=== PATIENT | female | born 1945 | race Caucasian/White ===

== ENCOUNTER → 2017-02-15 | Outpatient (CLI) | payer MEDICARE, MEDICAID ==
[~2017-02-15] MED LIST: HYDR-3927 PO; OMEP20CA10 PO
== END | disposition home or self-care (01) ==
LOC: MRI 10:09
PROVIDERS: ATTEND Neurological Surgery
DX: M48.02 Spinal stenosis, cervical region (principal)
CPT/HCPCS: 72141

== ENCOUNTER → 2017-04-12 | Outpatient (CLI) | payer MEDICARE, MEDICAID | END | disposition home or self-care (01) | LOC: MRI 11:41 | PROVIDERS: ATTEND Neurological Surgery | DX: M47.816 Spondylosis without myelopathy or radiculopathy, lumbar region (principal); M47.817 Spondylosis without myelopathy or radiculopathy, lumbosacral region; M12.88 Other specific arthropathies, not elsewhere classified, other specified site | CPT/HCPCS: 72148 ==

== ENCOUNTER → 2018-01-17 | Outpatient (CLI) | payer MEDICARE, MEDICAID | END | disposition home or self-care (01) | LOC: MRI 11:49 | PROVIDERS: ATTEND Neurological Surgery | DX: M51.36 Other intervertebral disc degeneration, lumbar region (principal); M43.16 Spondylolisthesis, lumbar region; M67.28 Synovial hypertrophy, not elsewhere classified, other site; M48.061 Spinal stenosis, lumbar region without neurogenic claudication; M12.88 Other specific arthropathies, not elsewhere classified, other specified site; M51.26 Other intervertebral disc displacement, lumbar region | CPT/HCPCS: 72148 ==

== ENCOUNTER → 2018-09-14 | Day surgery (SDC) | payer MEDICARE, MEDICAID ==
[~2018-09-14] MED LIST changes: +LIDOCAINE HCL 1% 20ML VIAL (Pyxis) INJ ONE; -OMEP20CA10 PO; +SODIUM BICARBONATE 4% (2.4MEQ) 5ML VIAL IV ONE
== END | disposition home or self-care (01) ==
LOC: RAD 10:16
PROVIDERS: ATTEND Internal Medicine
DX: E04.9 Nontoxic goiter, unspecified (principal); M17.0 Bilateral primary osteoarthritis of knee; E66.9 Obesity, unspecified; I10 Essential (primary) hypertension; M16.12 Unilateral primary osteoarthritis, left hip; K21.9 Gastro-esophageal reflux disease without esophagitis; E03.9 Hypothyroidism, unspecified; Z96.652 Presence of left artificial knee joint; Z79.899 Other long term (current) drug therapy; Z98.890 Other specified postprocedural states; Z90.710 Acquired absence of both cervix and uterus; Z68.26 Body mass index [BMI] 26.0-26.9, adult
CPT/HCPCS: 10022; 76942; 88172; 88173; J3490

== ENCOUNTER 2021-01-07 14:24 | Inpatient (IN) | payer MEDICARE, MEDICAID ==
[~2021-01-07] VITALS: Ht 157.5 cm; Wt 77.1 kg
[~2021-01-07 14:24] MED LIST changes: -LIDOCAINE HCL 1% 20ML VIAL (Pyxis) INJ ONE; -SODIUM BICARBONATE 4% (2.4MEQ) 5ML VIAL IV ONE
[2021-01-07 15:32] LABS: BASOPHILS % 0.7 % (0.0-2.0); EOSINOPHILS % 3.2 % (0.0-5.0); HEMOGLOBIN. 9.7 g/dL (12.0-16.0); LYMPHOCYTES % 13.2 % (20.0-50.0); MEAN CORPUSCULAR HEMOGLOBIN 24.9 pg (28.0-32.0); MEAN PLATELET VOLUME 8.1 fl (7.4-10.4); MONOCYTES % 5.2 % (2.0-8.0); NEUTROPHILS % 77.7 % (40.0-76.0); PLATELET 327 x1000/uL (130-400); RED CELL DISTRIBUTION WIDTH 13.8 % (11.6-14.6)
[2021-01-07 15:54] LABS: CHLORIDE 111 mEq/L (98-107)
[2021-01-07 17:25] LABS: T4 FREE 1.07 ng/dL (0.76-1.46)
[2021-01-07] MEDS ORDERED: ASPIRIN 81MG EC TABLET PO NR (17:30)
[2021-01-07] MEDS: METOPROLOL TARTRATE 25MG TABLET PO SCH ×2 (18:08→21:00)
[2021-01-07] MEDS ORDERED: ACETAMINOPHEN 650MG SUPP PR PRN (18:15)
[2021-01-07] MEDS ORDERED: CLONIDINE 0.1MG TABLET PO PRN (18:15)
[2021-01-07] MEDS ORDERED: MAGNESIUM/ALUMINUM HYDROXIDE/SIMETHICONE 30ML UDC PO PRN (18:15)
[2021-01-07] MEDS ORDERED: DOCUSATE SODIUM 100MG CAPSULE PO PRN (18:15)
[2021-01-07] MEDS ORDERED: LORAZEPAM 0.5MG TABLET PO PRN (18:15)
[2021-01-07] MEDS ORDERED: GUAIFENESIN 200MG/10ML SUGAR FREE UDC PO PRN (18:15)
[2021-01-07] MEDS ORDERED: DIPHENHYDRAMINE 50MG/ML VIAL IV PRN (18:15)
[2021-01-07] MEDS ORDERED: ONDANSETRON HCL 4MG/2ML INJ IV PRN (18:15)
[2021-01-07] MEDS ORDERED: HYDROCODONE/ACETAMINOPHEN 5/325MG TABLET PO PRN (18:15)
[2021-01-07] MEDS ORDERED: ACETAMINOPHEN 325MG TABLET PO PRN (18:15)
[2021-01-07] MEDS ORDERED: NA PHOS,M-B/NA PHOS,DI-BA ENEMA 118ML PR PRN (18:15)
[2021-01-07] MEDS ORDERED: IPRATROPIUM/ALBUTEROL 0.5-3(2.5)MG/3ML NEB NEB PRN (18:15)
[2021-01-07] MEDS ORDERED: MAGNESIUM 2 G PREMIX 50 ML IV NR (18:30)
[2021-01-07 19:35] LABS: INR 1.1; PROTHROMBIN TIME 11.4 sec (9.6-11.0)
[2021-01-07 20:55] LABS: CLARITY URINE CLEAR (CLEAR); COLOR URINE YELLOW (YELLOW); KETONES URINE NEGATIVE (NEGATIVE); LEUKOCYTE ESTERASE URINE NEGATIVE (NEGATIVE); NITRITE URINE NEGATIVE (NEGATIVE); OCCULT BLOOD URINE NEGATIVE (NEGATIVE); PH URINE 6.5 (4.5-8.0); PROTEIN URINE NEGATIVE (NEGATIVE); SPECIFIC GRAVITY URINE 1.007 (1.005-1.030); UROBILINOGEN URINE 0.2 E.U./dL (0.2-1.0)
[2021-01-07] MEDS: FAMOTIDINE 20MG TABLET PO SCH (21:50)
[2021-01-07 22:30] VITALS: BP 151/76
[2021-01-07] MEDS ORDERED: CELE200C MT (23:19)
[2021-01-07] MEDS ORDERED: GABA-529 MT (23:19)
[2021-01-07] MEDS ORDERED: AMIT25TA9 MT (23:19)
[2021-01-07] MEDS ORDERED: CHOL100046 PO (23:19)
[2021-01-07] MEDS ORDERED: OMEP20TA2 MT (23:19)
[2021-01-07 23:20] VITALS: BP 151/76
[2021-01-08] VITALS: BP_SYST 147; BP_SYST 148; BP_DIAS 68; BP_DIAS 77
[2021-01-08 00:34] LABS: CREATINE KINASE 27 IU/L (26-192)
[2021-01-08 00:35] LABS: CREATINE KINASE MB FRACTION < 1.0 ng/mL (0.5-3.6)
[2021-01-08] MEDS ORDERED: *PATIENT'S OWN MEDICATION STORAGE XX SCH (02:30)
[2021-01-08 04:00] VITALS: BP 130/55
[2021-01-08 06:11] LABS: BASOPHILS % 0.2 % (0.0-2.0); EOSINOPHILS % 1.5 % (0.0-5.0); HEMATOCRIT. 27.7 % (36.0-48.0); HEMOGLOBIN. 9.1 g/dL (12.0-16.0); LYMPHOCYTES % 20.2 % (20.0-50.0); MEAN CORPUSCULAR HEMOGLOBIN 25.5 pg (28.0-32.0); MEAN CORPUSCULAR VOLUME 77.4 fL (81.0-99.0); MEAN PLATELET VOLUME 8.4 fl (7.4-10.4); MONOCYTES % 5.7 % (2.0-8.0); NEUTROPHILS % 72.4 % (40.0-76.0); PLATELET 294 x1000/uL (130-400); RED BLOOD CELL COUNT 3.58 mill/uL (4.2-5.4); RED CELL DISTRIBUTION WIDTH 13.7 % (11.6-14.6)
[2021-01-08 06:14] LABS: CHLORIDE 110 mEq/L (98-107)
[2021-01-08 06:23] LABS: LDL CHOLESTEROL 75 mg/dL (5-100)
[2021-01-08 06:26] LABS: CREATINE KINASE 28 IU/L (26-192); CREATINE KINASE MB FRACTION < 1.0 ng/mL (0.5-3.6)
[2021-01-08 06:27] LABS: HDL CHOLESTEROL 54 mg/dL (40-59); TOTAL IRON BINDING CAPACITY 404 ug/dL (250-450)
[2021-01-08 08:00] VITALS: BP_SYST 129; BP_SYST 151; BP_DIAS 47; BP_DIAS 92
[2021-01-08] MEDS ORDERED: PNEUMOCOCCAL 23-VAL P-SAC VAC 0.5 ML IM ONE (08:00)
[2021-01-08] MEDS: METOPROLOL TARTRATE 25MG TABLET PO SCH ×2 (09:08→20:38)
[2021-01-08] MEDS: ASPIRIN 81MG TABLET PO SCH (09:09)
[2021-01-08] MEDS ORDERED: REGADENOSON 0.4 MG/5 ML IV NR (10:45)
[2021-01-08 12:00] VITALS: BP 131/69
[2021-01-08 16:00] VITALS: BP 139/65
[2021-01-08] MEDS ORDERED: IRON SUCROSE COMPLEX 100 MG/5 ML ML IV SCH (18:00)
[2021-01-08 20:00] VITALS: BP 126/58
[2021-01-08] MEDS: FAMOTIDINE 20MG TABLET PO SCH (20:38)
[2021-01-09] VITALS: BP 149/58
[2021-01-09] MEDS ORDERED: DEXT 5%/0.45% NACL 1000ML 1,000 ML IV SCH
[2021-01-09 04:00] VITALS: BP 110/52
[2021-01-09 07:10] LABS: BASOPHILS % 0.4 % (0.0-2.0); EOSINOPHILS % 3.1 % (0.0-5.0); HEMATOCRIT. 31.8 % (36.0-48.0); HEMOGLOBIN. 10.2 g/dL (12.0-16.0); LYMPHOCYTES % 15.5 % (20.0-50.0); MEAN CORPUSCULAR HEMOGLOBIN 24.9 pg (28.0-32.0); MEAN CORPUSCULAR VOLUME 77.6 fL (81.0-99.0); MEAN PLATELET VOLUME 8.3 fl (7.4-10.4); MONOCYTES % 6.8 % (2.0-8.0); NEUTROPHILS % 74.2 % (40.0-76.0); PLATELET 308 x1000/uL (130-400); RED CELL DISTRIBUTION WIDTH 13.6 % (11.6-14.6)
[2021-01-09 07:19] LABS: CHLORIDE 107 mEq/L (98-107)
[2021-01-09 08:00] VITALS: BP 115/59
[2021-01-09] MEDS ORDERED: REGADENOSON 0.4 MG/5 ML IV ONE (08:27)
[2021-01-09] MEDS: METOPROLOL TARTRATE 25MG TABLET PO SCH (08:34)
[2021-01-09] MEDS: ASPIRIN 81MG TABLET PO SCH (08:35)
[2021-01-09 12:00] VITALS: BP 122/63
[2021-01-09] MEDS ORDERED: FERR-71 MT (13:54)
[2021-01-09] MEDS ORDERED: METO25TA6 MT (13:54)
[2021-01-09] MEDS ORDERED: ASPI-1497 MT (13:54)
[2021-01-09 16:00] VITALS: BP 100/67
[2021-01-09 16:28] VITALS: BP 100/67
== END 2021-01-09 17:05 | disposition home or self-care (01) | DRG 315 ==
LOC: ER 14:24 → 5WST 15:44 → ENRESERV 21:42
PROVIDERS: ADMIT Internal Medicine; ATTEND Internal Medicine
DX: I31.3 Pericardial effusion (noninflammatory) (principal); I47.1 Supraventricular tachycardia; M94.0 Chondrocostal junction syndrome [Tietze]; I48.0 Paroxysmal atrial fibrillation; M19.90 Unspecified osteoarthritis, unspecified site; D50.9 Iron deficiency anemia, unspecified; E83.42 Hypomagnesemia; I10 Essential (primary) hypertension; E03.9 Hypothyroidism, unspecified; Z96.642 Presence of left artificial hip joint; K21.9 Gastro-esophageal reflux disease without esophagitis; R07.89 Other chest pain; K76.89 Other specified diseases of liver; Z20.822 Contact with and (suspected) exposure to COVID-19; F32.9 Major depressive disorder, single episode, unspecified; E05.90 Thyrotoxicosis, unspecified without thyrotoxic crisis or storm; Z90.710 Acquired absence of both cervix and uterus; Z87.891 Personal history of nicotine dependence; Z79.899 Other long term (current) drug therapy; R42 Dizziness and giddiness; R53.1 Weakness
CPT/HCPCS: 36415; 71045; 74176; 76700; 78452; 80048; 80053; 80061; 81003; 82550; 82553; 82728; 83540; 83550; 83735; 83880; 84439; 84443; 84481; 84484; 85025; 85044; 87426; 90732; 93005; 93017; 93306; 93970; 97162; 99285; A9500; J2785; J3475